=== PATIENT | female | born 1980 | race Caucasian/White ===

== ENCOUNTER 2017-09-19 00:17 | Observation (INO) | payer MEDICAID ==
[~2017-09-19] VITALS: Ht 144.8 cm; Wt 56.7 kg
[2017-09-19] MEDS ORDERED: FOLI-43 PO (01:08)
[2017-09-19] MEDS ORDERED: FERR325T6 PO (01:08)
[2017-09-19] MEDS ORDERED: PNV1TABL76 MT (01:08)
[2017-09-19] MEDS ORDERED: LACTATED RINGERS 1,000 ML IV SCH (01:15)
[2017-09-19 01:24] LABS: CLARITY URINE CLEAR (CLEAR); COLOR URINE YELLOW (YELLOW); KETONES URINE NEGATIVE (NEGATIVE); LEUKOCYTE ESTERASE URINE NEGATIVE (NEGATIVE); NITRITE URINE NEGATIVE (NEGATIVE); OCCULT BLOOD URINE NEGATIVE (NEGATIVE); PH URINE 6.5 (4.5-8.0); PROTEIN URINE NEGATIVE (NEGATIVE); SPECIFIC GRAVITY URINE 1.021 (1.005-1.030); UROBILINOGEN URINE 0.2 E.U./dL (0.2-1.0)
== END 2017-09-19 04:30 | disposition home or self-care (01) ==
LOC: L&D 00:17
PROVIDERS: ADMIT Obstetrics & Gynecology; ATTEND Obstetrics & Gynecology
DX: O26.893 Other specified pregnancy related conditions, third trimester (principal); R10.30 Lower abdominal pain, unspecified; Z3A.29 29 weeks gestation of pregnancy
CPT/HCPCS: 76805; 76818; 81003; 96360; 96361; 99281; G0378; J7120

== ENCOUNTER 2019-05-16 13:17 | Emergency (ER) | payer MEDICAID ==
[~2019-05-16] VITALS: Ht 152.4 cm; Wt 73.0 kg
[~2019-05-16 13:17] MED LIST: FERR325T6 PO; PNV1TABL76 MT
[2019-05-16 14:47] LABS: BASOPHILS % 0.1 % (0.0-2.0); EOSINOPHILS % 1.4 % (0.0-5.0); HEMATOCRIT. 41.2 % (36.0-48.0); LYMPHOCYTES % 23.6 % (20.0-50.0); MEAN CORPUSCULAR HEMOGLOBIN 29.8 pg (28.0-32.0); MEAN CORPUSCULAR VOLUME 87.5 fL (81.0-99.0); MEAN PLATELET VOLUME 8.4 fl (7.4-10.4); MONOCYTES % 6.1 % (2.0-8.0); NEUTROPHILS % 68.8 % (40.0-76.0); PLATELET 264 x1000/uL (130-400); RED BLOOD CELL COUNT 4.71 mill/uL (4.2-5.4); RED CELL DISTRIBUTION WIDTH 13.3 % (11.6-14.6)
[2019-05-16 14:53] LABS: CHLORIDE 106 mEq/L (98-107)
[2019-05-16 15:05] LABS: B-HCG QUANTITATIVE 101 mIU/mL (<3)
[2019-05-16 17:15] VITALS: BP 128/77
== END 2019-05-16 17:17 | disposition home or self-care (01) ==
LOC: ER 13:17
DX: O20.9 Hemorrhage in early pregnancy, unspecified (principal); Z3A.08 8 weeks gestation of pregnancy
CPT/HCPCS: 36415; 76801; 81025; 84702; 86850; 86900; 99284

== ENCOUNTER 2020-09-11 08:45 | Emergency (ER) | payer MEDICAID ==
[~2020-09-11] VITALS: Ht 160 cm; Wt 45.0 kg
[2020-09-11 08:52] VITALS: BP 143/83
[2020-09-11 11:14] LABS: CLARITY URINE CLOUDY (CLEAR); COLOR URINE YELLOW (YELLOW); KETONES URINE NEGATIVE (NEGATIVE); LEUKOCYTE ESTERASE URINE 1+ (NEGATIVE); NITRITE URINE NEGATIVE (NEGATIVE); OCCULT BLOOD URINE NEGATIVE (NEGATIVE); PH URINE 5.5 (4.5-8.0); PROTEIN URINE NEGATIVE (NEGATIVE); SPECIFIC GRAVITY URINE 1.029 (1.005-1.030)
[2020-09-11] MEDS ORDERED: KETOROLAC 30MG/ML VIAL IM ONE (11:30)
[2020-09-11] MEDS ORDERED: CEPHALEXIN 250MG CAPSULE PO ONE (12:45)
[2020-09-11 13:42] LABS: BASOPHILS % 0.5 % (0.0-2.0); EOSINOPHILS % 0.9 % (0.0-5.0); HEMATOCRIT. 37.8 % (36.0-48.0); HEMOGLOBIN. 12.8 g/dL (12.0-16.0); LYMPHOCYTES % 21.7 % (20.0-50.0); MEAN CORPUSCULAR VOLUME 88.5 fL (81.0-99.0); MEAN PLATELET VOLUME 8.7 fl (7.4-10.4); MONOCYTES % 4.9 % (2.0-8.0); PLATELET 269 x1000/uL (130-400); RED BLOOD CELL COUNT 4.27 mill/uL (4.2-5.4); RED CELL DISTRIBUTION WIDTH 12.9 % (11.6-14.6)
[2020-09-11 13:52] LABS: CHLORIDE 109 mEq/L (98-107)
== END 2020-09-11 14:51 | disposition home or self-care (01) ==
LOC: ER 08:45
DX: R09.1 Pleurisy (principal); Z79.899 Other long term (current) drug therapy
CPT/HCPCS: 36415; 71046; 73030; 80053; 81003; 81025; 83690; 85025; 85379; 87086; 96372; 99284; J1885